=== PATIENT | male | born 1950 | race Hispanic/Latino ===

== ENCOUNTER → 2018-11-15 | Outpatient (CLI) | payer OTHER | END | disposition home or self-care (01) | LOC: RAH 12:46 | PROVIDERS: ATTEND Nurse Practitioner | DX: I73.9 Peripheral vascular disease, unspecified (principal); R03.0 Elevated blood-pressure reading, without diagnosis of hypertension; I50.41 Acute combined systolic (congestive) and diastolic (congestive) heart failure; J44.9 Chronic obstructive pulmonary disease, unspecified | CPT/HCPCS: 93922 ==